=== PATIENT | female | born 1945 | race Caucasian/White ===

== ENCOUNTER 2023-02-08 14:19 | Emergency (ER) | payer MEDICARE, MEDICAID ==
[2023-02-08] MEDS: hydrOXYzine HCl 50 MG/ML SDV IM ONE (15:05)
== END 2023-02-08 15:12 | disposition home or self-care (01) ==
LOC: MERGE 14:19 → KA.ED 14:19
DX: B85.1 Pediculosis due to Pediculus humanus corporis (principal); I10 Essential (primary) hypertension; K21.9 Gastro-esophageal reflux disease without esophagitis; E66.9 Obesity, unspecified; Z68.35 Body mass index [BMI] 35.0-35.9, adult; Z79.82 Long term (current) use of aspirin
CPT/HCPCS: 96372; 99282; 99283; J3410

== ENCOUNTER 2024-04-21 08:02 | Emergency (ER) | payer MEDICARE, MEDICAID ==
[2024-04-21] MEDS: Amoxicillin/Clavulanate K 875-125 MG Tab PO ONE (08:53)
== END 2024-04-21 09:02 | disposition home or self-care (01) ==
LOC: KA.ED 08:02
DX: K04.7 Periapical abscess without sinus (principal); I10 Essential (primary) hypertension; K21.9 Gastro-esophageal reflux disease without esophagitis; M19.90 Unspecified osteoarthritis, unspecified site; E66.9 Obesity, unspecified; Z88.8 Allergy status to other drugs, medicaments and biological substances; Z91.013 Allergy to seafood; Z79.82 Long term (current) use of aspirin; Z79.899 Other long term (current) drug therapy; Z68.35 Body mass index [BMI] 35.0-35.9, adult
CPT/HCPCS: 99283; A9270